=== PATIENT | male | born 1990 | race Two or more races ===

== ENCOUNTER 2020-05-28 17:59 | Emergency (ER) | payer OTHER ==
[~2020-05-28] VITALS: Ht 172.7 cm; Wt 95.4 kg
--- NOTE | 2020-05-28 18:21 | PHYS DOC ---
General Adult EDM: Chief Complaint: ABDOMINAL PAIN HPI: HPI: Patient is a 29 year old male patient who presents to the ED today complaining of a sharp 9 out of 10 right lower quadrant abdominal pain, symptoms began 1 hour prior to coming to the ED. Denies any nausea vomiting, denies any diarrhea. Denies anything specifically exacerbating or relieving the pain. (TERRI CARVAJAL APRN) Review of Systems: Review of Systems: Constitutional: Denies fever or chills. [] Eyes: Denies change in visual acuity. [] HENT: Denies nasal congestion or sore throat. [] Respiratory: Denies cough or shortness of breath. [] Cardiovascular: Denies chest pain or edema. [] GI: Reports right lower quadrant abdominal pain, denies nausea, vomiting, bloody stools or diarrhea. [] : Denies dysuria. [] Musculoskeletal: Denies back pain or joint pain. [] Integument: Denies rash. [] Neurologic: Denies headache, focal weakness or sensory changes. [] Psychiatric: Denies depression or anxiety. [] (TERRI CARVAJAL APRN) Heart Score: Risk Factors: Risk Factors: DM, Current or recent (<one month) smoker, HTN, HLP, family history of CAD, obesity. Risk Scores: Score 0 - 3: 2.5% MACE over next 6 weeks - Discharge Home Score 4 - 6: 20.3% MACE over next 6 weeks - Admit for Clinical Observation Score 7 - 10: 72.7% MACE over next 6 weeks - Early Invasive Strategies (TERRI CARVAJAL APRN) Allergies: Allergies: Allergies Coded Allergies Type Severity Reaction Last Updated Verified No Known Drug Allergies 05/28/20 No (TERRI CARVAJAL APRN) Physical Exam: PE: Constitutional: Well developed, well nourished, no acute distress, non-toxic appearance. [] HENT: Normocephalic, atraumatic, bilateral external ears normal, oropharynx moist, no oral exudates, nose normal. [] Eyes: PERRLA, EOMI, conjunctiva normal, no discharge. [] Neck: Normal range of motion, no tenderness, supple, no stridor. [] Cardiovascular:Heart rate regular rhythm, no murmur [] Lungs & Thorax: Bilateral breath sounds clear to auscultation [] Abdomen: Bowel sounds normal, soft, mild tenderness on palpation of the right mid to right lower quadrant, no right upper quadrant tenderness, no masses, no pulsatile masses. Negative Chandler sign, negative psoas sign, negative obturator sign. Skin: Warm, dry, no erythema, no rash. [] Back: No tenderness, no CVA tenderness. [] Extremities: No tenderness, no cyanosis, no clubbing, ROM intact, no edema. [] Neurologic: Alert and oriented X 3, normal motor function, normal sensory function, no focal deficits noted. [] Psychologic: Affect normal, judgement normal, mood normal. [] (TERRI CARVAJAL APRN) EKG: EKG: [] (TERRI CARVAJAL APRN) Radiology/Procedures: Radiology/Procedures: [] (TERRI CARVAJAL APRN) Radiology/Procedures: IMAGING REPORT Signed PATIENT: BRIANNE COREAACCOUNT: [id number] : 1990 LOCATION: ER AGE: 29 SEX: M EXAM STATUS: REG ER ORD. PHYSICIAN: TERRI CARVAJAL APRN REASON: RLQ pain PROCEDURE: CT ABD PELV W/ IV CONTRST ONLY INDICATION: Reason: RLQ pain / Spl. Instructions: [id number] 75ML / History: . COMPARISON: None. TECHNIQUE: Axial CT images obtained through the abdomen and pelvis with contrast. One or more of the following individualized dose reduction techniques were utilized for this examination: 1. Automated exposure control; 2. Adjustment of the mA and/or kV according to patient size; 3. Use of iterative reconstruction technique. FINDINGS: Abdominal aorta is not aneurysmal. Small fat-containing right inguinal hernia. Liver is low density. Can be seen with fatty infiltration. No peripancreatic fluid collection. No perisplenic hematoma. No left-sided hydronephrosis. Urinary bladder has minimal urine within it at time of exam. Moderate right-sided hydronephrosis with nephric and perinephric edema and distention of the right proximal ureter with adjacent edema. 3 mm right proximal ureter stone. No periappendiceal inflammatory changes. No dilated loops of bowel to suggest obstruction. There is some degenerative changes of the spine. IMPRESSION: * Right-sided hydronephrosis as well as adjacent edema with proximal ureter stone. Electronically signed by: Ramona King MD (05/28/2020 8:05 PM) [id number] DICTATED and SIGNED BY: RAMONA KING MD DATE: 05/28/20 [id number] (BRANDON REEVES DO) Course & Med Decision Making: Course & Med Decision Making Pertinent Labs and Imaging studies reviewed. (See chart for details) This is a 29-year-old male patient presenting to the ED today complaining of right lower quadrant abdominal pain, symptoms began an hour prior to coming to the ED Appendicitis work-up initiated including CT of the abdomen and pelvic with IV contrast [address] Reeves (MUTUNGA,TERRI DATABASE ADMINISTRATION PROJECT MANAGER) Course & Med Decision Making Will discharge home with strict ED return precautions were given for []. Encouraged urgent outpatient follow-up with PMD and [specialist]. Life- threatening processes were considered but are low suspicion at this time, given history, physical exam and ED workup. Pt was educated on all prescription medications and adverse effects. All patient's questions were answered and pt was stable at time of discharge. Life/limb-threatening differential includes but is not limited to, aortic dissection/aneurysm, cauda equina syndrome, transverse myelitis, spinal cord/epidural compression syndromes, discitis, spinal stenosis, epidural abscess or hematoma, osteomyelitis, disc herniation, surgical abdomen, stable or unstable fracture, renal/ureteral colic, sepsis, meningitis, musculoskeletal injury, traumatic injury, intraabdominal/retroperitoneal or pelvic bleeding. I spoken with the patient and her caregivers. I explained the patient's condition, diagnoses and treatment plan based on the information available to me at this time. I have answered the patient and her caregiver's questions and addressed any concerns. The patient and her caregivers have a good understanding of patient's diagnosis, condition and treatment plan as can be expected at this point. Vital signs have been stable. Patient's condition is stable and appropriate for discharge from the emergency department. Patient will pursue further outpatient evaluation with primary care physician or other designated or consulting physician as outlined in the discharge instructions. The patient and/or caregivers are agreeable to this plan of care and follow-up instructions have been explained in detail. The patient and/or caregivers have received these instructions in written form and have expressed an understanding of the discharge instructions. The patient and/or caregivers are aware that any significant change of condition or worsening of symptoms should prompt immediate return to this or the closest emergency department or call to 911. (BRANDON REEVES DO) Pravin Disclaimer: Pravin Disclaimer: This electronic medical record was generated, in whole or in part, using a voice recognition dictation system. (TERRI CARVAJAL APRN) Departure Departure Impression: Primary Impression: Right lower quadrant pain Additional Impressions: Ureteral colic Hydronephrosis of right kidney Disposition: 01 DC HOME SELF CARE/HOMELESS Condition: STABLE Referrals: NO PCP (PCP) FOLLOW UP WITH FAMILY MEDICINE: Family Medicine Address: [address] [place] [address] Patient Instructions: Kidney Stones Additional Instructions: FOLLOW UP WITH UROLOGY:-Call in a.m. for outpatient lithotripsy versus stent pl acement if needed [facility] [address] [place], [place] [id number] appointments: [phone] EMERGENCY DEPARTMENT GENERAL DISCHARGE INSTRUCTIONS Thank you for coming to [facility] Emergency Department (ED) today and trusting us with you care. We trust that you had a positive experience in our Emergency Department. If you wish to speak to the department management, you may call the Director at [phone]. YOUR FOLLOW UP INSTRUCTIONS ARE FOLLOWS: 1. Do you have a private Doctor? If you do not have a private doctor, please ask for a resource list of physicians or clinics that may be able to assist you with follow up care. 2. The Emergency Physicain has interpreted your x-rays. The X-Ray specialist will also review them. If there is a change in the findings, you will be notified in 48 hours when at all possible. 3. A lab test or culture has been done, your results will be reviewed and you will be notified if you need a change in treatment. ADDITIONAL INSTRUCTIONS AND INFORMATION: 1. Your care today has been supervised by a physician who is specially trained in emergency care. Many problems require more than one evaluation for a complete diagnosis and treatment. We recommend that you schedule your follow up appointment as recommended to ensure complete treatment of you illness or injury. If you are unable to obtain follow up care and continue to have a problem, or if your condition worsens, we recommend that you return to the ED. 2. We are not able to safely determine your condition over the phone nor are we able to give sound medical advice over the phone. For these safety reasons, if you call for medical advice we will ask you to come to the ED for further evaluation. 3. If you have any questions regarding these discharge instructions please call the ED at [phone]. SAFETY INFORMATION: In the interest of safety, wellness, and injury prevention; we encourage you to wear your sealbelt, if you smoke; quite smoking, and we encourage family to use a protective helmet for bicycling and other sporting events that present an increased risk for head injury. IF YOUR SYMPTOMS WORSEN OR NEW SYMPTOMS DEVELOP, OR YOU HAVE CONCERNS ABOUT YOUR CONDITION; OR IF YOUR CONDITION WORSENS WHILE YOU ARE WAITING FOR YOUR FOLLOW UP APPOINTMENT; EITHER CONTACT YOUR PRIMARY CARE DOCTOR, THE PHYSICIAN WHOSE NAME AND NUMBER YOU WERE GIVEN, OR RETURN TO THE ED IMMEDIATELY. Scripts Cephalexin (CEPHALEXIN) 500 Mg Capsule 1 CAP PO QID for 10 Days, #40 CAP Prov: BRANDON REEVES DO 05/28/20 Tamsulosin Hcl (FLOMAX) 0.4 Mg Cap.er.24h 1 CAP PO DAILY for 10 Days, #10 CAP 0 Refills Prov: BRANDON REEVES DO 05/28/20 Ondansetron (ONDANSETRON ODT) 4 Mg Tab.rapdis 1 TAB PO PRN Q6-8HRS, #20 TAB Prov: BRANDON REEVES DO 05/28/20 Hydrocodone Bit/Acetaminophen (HYDROCODONE-APAP 5-325 ) 1 Tab Tablet 1 TAB PO PRN Q6HRS PRN for PAIN for 4 Days, #16 TAB 0 Refills Prov: BRANDON REEVES DO 05/28/20 TERRI CARVAJAL APRN May 28, 2020 18:21 BRANDON REEVES DO May 28, 2020 20:36
[2020-05-28] MEDS ORDERED: ONDANSETRON PF 4 MG/2 ML VIAL. IVP ONE (18:30)
[2020-05-28] MEDS ORDERED: IV NORMAL SALINE 1000ML BAG 1,000 ML IV ONE (18:30)
[2020-05-28] MEDS ORDERED: MORPHINE SULFATE 10 MG/ML VIAL. IV ONE (18:30)
[2020-05-28] MEDS ORDERED: FAMOTIDINE 20 MG/2 ML VIAL IVP ONE (18:30)
[2020-05-28 18:36] LABS: BILIRUBIN,URINE NEGATIVE (NEG); CLARITY,URINE CLEAR; COLOR,URINE AMBER; NITRITE,URINE NEGATIVE (NEG); PH,URINE 6.5 (<5.0-8.0); PROTEIN,URINE 30 mg/dL (NEG-TRACE); UROBILINOGEN,URINE 0.2 mg/dL (0.2 mg/dL)
[2020-05-28 18:37] LABS: BASO # 0.1 x10^3/uL (0.0-0.2); BASO % 1 % (0-3); EOS # 0.1 x10^3/uL (0.0-0.7); EOS % 1 % (0-3); HEMATOCRIT 48.8 % (39.0-53.0); HEMOGLOBIN 16.4 g/dL (13.0-17.5); LYMPH # 3.1 x10^3/uL (1.0-4.8); LYMPH % 29 % (24-48); MEAN CORPUSCULAR HEMOGLOBIN 27 pg (25-35); MEAN CORPUSCULAR HGB CONC 34 g/dL (31-37); MEAN CORPUSCULAR VOLUME 81 fL (79-100); MONO # 0.6 x10^3/uL (0.0-1.1); MONO % 6 % (0-9); NEUT # 6.7 x10^3/uL (1.8-7.7); NEUT % 63 % (31-73); PLATELET COUNT 229 x10^3/uL (140-400); RED BLOOD COUNT 6.04 x10^6/uL (4.30-5.70); RED CELL DISTRIBUTION WIDTH 13.8 % (11.5-14.5); WHITE BLOOD COUNT 10.6 x10^3/uL (4.0-11.0)
[2020-05-28 18:45] LABS: AMPHETAMINE/METHAMPHETAMINE NEG (NEG); BARBITURATES NEG (NEG); BENZODIAZEPINES NEG (NEG); CANNABINOIDS NEG (NEG); COCAINE NEG (NEG); METHADONE NEG (NEG); OPIATES NEG (NEG); PHENCYCLIDINE NEG (NEG)
[2020-05-28 18:46] LABS: CREATININE 1.3 mg/dL (0.7-1.3); GFR 64.8; POTASSIUM 3.8 mmol/L (3.5-5.1)
[2020-05-28 18:48] LABS: BACTERIA,URINE FEW /HPF (0-FEW)
[2020-05-28 18:49] LABS: RBC,URINE >40 /HPF (0-2)
[2020-05-28 18:52] LABS: TOTAL BILIRUBIN 0.5 mg/dL (0.2-1.0)
[2020-05-28] MEDS ORDERED: IOHEXOL 300 MG/ML 100ML VIAL. IV ONE (19:45)
[2020-05-28] MEDS ORDERED: CONTRAST GIVEN. MC PRN (20:00)
--- NOTE | 2020-05-28 20:07 | RAD ---
INDICATION: Reason: RLQ pain / Spl. Instructions: [id number] 75ML / History: . COMPARISON: None. TECHNIQUE: Axial CT images obtained through the abdomen and pelvis with contrast. One or more of the following individualized dose reduction techniques were utilized for this examinat ion: 1. Automated exposure control; 2. Adjustment of the mA and/or kV according to patient size; 3 . Use of iterative reconstruction technique. FINDINGS: Abdominal aorta is not aneurysmal. Small fat-containing right inguinal hernia. Liver is low density. Can be seen with fatty infiltration. No peripancreatic fluid collection. No perisplenic hematoma. No left-sided hydronephrosis. Urinary bladder has minimal urine within it at time of exam. Moderate right-sided hydronephrosis with nephric and perinephric edema and distention of the right pr oximal ureter with adjacent edema. 3 mm right proximal ureter stone. No periappendiceal inflammatory changes. No dilated loops of bowel to suggest obstruction. There is some degenerative changes of the spine. IMPRESSION: * Right-sided hydronephrosis as well as adjacent edema with proximal ureter stone. Electronically signed by: Meir German MD (05/28/2020 8:05 PM) [id number]
[2020-05-28] MEDS ORDERED: KETOROLAC 15 MG/ML VIAL. IVP ONE (20:45)
[2020-05-28] MEDS ORDERED: METOCLOPRAMIDE HCL 10 MG/2 ML VIAL. IVP ONE (20:45)
[2020-05-28] MEDS ORDERED: TAMSULOSIN 0.4 MG CAP.ER.24H. PO ONE (20:45)
[2020-05-28] MEDS ORDERED: HYDROmorphone 2 MG/ML VIAL ONE (21:15)
[2020-05-28] MEDS ORDERED: HYDROmorphone 2 MG/ML VIAL IVP ONE (21:15)
[2020-05-28] MEDS ORDERED: TAMS0.4C97 PO (22:00)
[2020-05-28] MEDS ORDERED: CEPH500C PO (22:00)
[2020-05-28] MEDS ORDERED: ONDA4TAB12 PO (22:00)
[2020-05-28] MEDS ORDERED: HYDR-2761 PO (22:00)
[2020-05-28 22:11] VITALS: BP 130/68
== END 2020-05-28 22:25 | disposition home or self-care (01) ==
LOC: ER 17:59
DX: N13.2 Hydronephrosis with renal and ureteral calculous obstruction (principal)
CPT/HCPCS: 36415; 74177; 80053; 80307; 81001; 83690; 85025; 96361; 96374; 96375; 99285; G0480; J1170; J1885; J2270; J2405; J2765; J3490; J7030; Q9967